=== PATIENT | male | born 1955 | race African-American/Black ===

== ENCOUNTER 2022-03-30 00:18 | Emergency (ER) | payer OTHER ==
[~2022-03-30] VITALS: Ht 180.3 cm; Wt 105.0 kg
[2022-03-30 04:10] VITALS: BP 148/86
[2022-03-30 07:05] LABS: BASOPHILS % 0.4 % (0.0-2.0); EOSINOPHILS % 5.9 % (0.0-5.0); HEMATOCRIT. 33.9 % (42.0-52.0); HEMOGLOBIN. 11.4 g/dL (14.0-18.0); LYMPHOCYTES % 28.2 % (20.0-50.0); MEAN CORPUSCULAR HEMOGLOBIN 30.9 pg (28.0-32.0); MEAN CORPUSCULAR VOLUME 91.7 fL (80.0-94.0); MEAN PLATELET VOLUME 7.3 fl (7.4-10.4); MONOCYTES % 7.4 % (2.0-8.0); NEUTROPHILS % 58.1 % (40.0-76.0); PLATELET 448 x1000/uL (130-400); RED CELL DISTRIBUTION WIDTH 13.9 % (11.6-14.6)
[2022-03-30 07:06] LABS: CHLORIDE 100 mEq/L (98-107)
== END 2022-03-30 08:22 | disposition home or self-care (01) ==
LOC: ER 00:18
DX: E87.5 Hyperkalemia (principal); I10 Essential (primary) hypertension; E11.9 Type 2 diabetes mellitus without complications; D64.9 Anemia, unspecified
CPT/HCPCS: 36415; 80053; 85025; 99283

== ENCOUNTER 2023-03-26 11:10 | Emergency (ER) | payer OTHER ==
[~2023-03-26] VITALS: Ht 175.3 cm; Wt 105.0 kg
[2023-03-26 11:41] VITALS: BP 146/75; O2SAT 96
[2023-03-26] MEDS ORDERED: SODIUM CHLORIDE 0.9% 10 ML IV ONE (12:15)
[2023-03-26] MEDS ORDERED: LIDOCAINE/EPINEPHR/TETRACAINE 3ML TP ONE (12:15)
[2023-03-26] MEDS ORDERED: TERBUTALINE SULFATE 1MG/ML VIAL SUBCUT ONE (12:15)
[2023-03-26] MEDS ORDERED: LIDOCAINE/PRILOCAINE CREAM 5 GM TUBE TOP ONE (14:00)
[2023-03-26] MEDS ORDERED: TERBUTALINE SULFATE 1MG/ML VIAL SUBCUT NR (14:00)
[2023-03-26] MEDS ORDERED: PHENYLEPHRINE 100MCG/ML 10ML VIAL (CATH LAB) MC NR (15:00)
[2023-03-26] MEDS ORDERED: PSEUDOEPHEDRINE HCL 30MG TABLET PO ONE (16:00)
[2023-03-26] MEDS ORDERED: TOPUD PO (19:52)
[2023-03-26] MEDS ORDERED: IBUP-2028 MT (19:52)
[2023-03-26 20:04] VITALS: PULSE 86; RESP 18; TEMP 97.9
== END 2023-03-26 20:04 | disposition home or self-care (01) ==
LOC: ER 11:10 → CANBEDREQ 18:45 → ER 20:04
DX: N48.30 Priapism, unspecified (principal); E11.9 Type 2 diabetes mellitus without complications; N52.9 Male erectile dysfunction, unspecified; I10 Essential (primary) hypertension; Z98.890 Other specified postprocedural states
CPT/HCPCS: 54220; 96360; 96372; 99284; J2370; J3105; J7030; 96361